=== PATIENT | male | born 1955 | race Caucasian/White ===

== ENCOUNTER 2023-12-23 09:59 | Emergency (ER) | payer BC ==
[~2023-12-23] VITALS: Ht 175.3 cm; Wt 82.0 kg
[~2023-12-23 09:59] MED LIST: ASPI-1497 PO; HYDR12.54 PO
[2023-12-23 10:00] VITALS: O2SAT 93
[2023-12-23 10:51] LABS: BASOPHILS % 1.3 % (0.0-2.0); EOSINOPHILS % 3.9 % (0.0-5.0); HEMATOCRIT. 41.9 % (42.0-52.0); HEMOGLOBIN. 13.9 g/dL (14.0-18.0); LYMPHOCYTES % 24.7 % (20.0-50.0); MEAN CORPUSCULAR HEMOGLOBIN 30.8 pg (28.0-32.0); MEAN CORPUSCULAR HGB CONC 33.2 g/dL (31.0-37.0); MEAN CORPUSCULAR VOLUME 92.8 fL (80.0-94.0); MEAN PLATELET VOLUME 8.4 fl (7.4-10.4); MONOCYTES % 8.4 % (2.0-8.0); NEUTROPHILS % 61.7 % (40.0-76.0); PLATELET 152 x1000/uL (130-400); RED BLOOD CELL COUNT 4.51 mill/uL (4.7-6.1); RED CELL DISTRIBUTION WIDTH 14.1 % (11.6-14.6)
[2023-12-23 10:57] LABS: PROTHROMBIN TIME 11.1 sec (9.6-11.0)
[2023-12-23 11:12] LABS: ALANINE AMINOTRANSFERASE 14 IU/L (10-49); ALBUMIN 4.4 g/dL (3.2-4.8); ASPARTATE AMINOTRANSFERASE 21 IU/L (<34); BILIRUBIN TOTAL 0.7 mg/dL (0.1-1.0); CALCIUM 8.8 mg/dL (8.7-10.4); CARBON DIOXIDE 28 mEq/L (21-32); CHLORIDE 105 mEq/L (98-107); GLUCOSE 166 mg/dL (70-105); POTASSIUM 4.4 mEq/L (3.5-5.1); PROTEIN TOTAL 6.6 g/dL (6.0-8.3); SODIUM 138 mEq/L (136-145); UREA NITROGEN BLOOD 21 mg/dL (9-23)
[2023-12-23 11:28] LABS: TROPONIN I HIGH SENSITIVITY 66 ng/L (3.0-53)
[2023-12-23 13:16] LABS: TROPONIN I HIGH SENSITIVITY 69 ng/L (3.0-53)
[2023-12-23 13:36] VITALS: BP 116/62; PULSE 61; RESP 18; TEMP 98.3
== END 2023-12-23 13:34 | disposition home or self-care (01) ==
LOC: ER 09:59
DX: R55 Syncope and collapse (principal); E78.00 Pure hypercholesterolemia, unspecified; I50.9 Heart failure, unspecified
CPT/HCPCS: 36415; 71045; 80053; 83880; 84484; 85025; 93005; 99285

== ENCOUNTER 2025-10-11 05:55 | Inpatient (IN) | payer BC, MEDICARE ==
[~2025-10-11] VITALS: Ht 170.2 cm; Wt 72.1 kg
[~2025-10-11 05:55] MED LIST changes: +AMLO5TAB88 MT; -ASPI-1497 PO; +BETH5TAB10 PO; +CLOP75TA33 PO; +DOCU-422 MT; +FINA5TAB11 PO; +GABA-1180 MT; +HYDR10TA34 MT; -HYDR12.54 PO; +SAW/1TAB2 MT; +SIMV10TA97 MT; +TERA10CA4 MT
[2025-10-11 05:56] VITALS: O2SAT 96
[2025-10-11] MEDS: ACETAMINOPHEN 325MG TABLET PO ONE (06:34)
[2025-10-11] MEDS: ONDANSETRON HCL 4MG/2ML INJ IV ONE (06:47)
[2025-10-11 07:14] LABS: BASOPHILS % 0.4 % (0.0-2.0); EOSINOPHILS % 3.5 % (0.0-5.0); HEMATOCRIT. 36.5 % (42.0-52.0); HEMOGLOBIN. 12.1 g/dL (14.0-18.0); LYMPHOCYTES % 8.2 % (20.0-50.0); MEAN PLATELET VOLUME 8.0 fl (7.4-10.4); MONOCYTES % 7.1 % (2.0-8.0); NEUTROPHILS % 80.8 % (40.0-76.0); PLATELET 179 x1000/uL (130-400); RED BLOOD CELL COUNT 4.15 mill/uL (4.7-6.1); RED CELL DISTRIBUTION WIDTH 14.2 % (11.6-14.6)
[2025-10-11] MEDS: MORPHINE SULFATE 4 MG/ML INJ (FOR IV/IM USE) IV ONE (07:22)
[2025-10-11 07:31] LABS: UREA NITROGEN BLOOD 25 mg/dL (9-23)
[2025-10-11 07:33] LABS: ASPARTATE AMINOTRANSFERASE 10 IU/L (<34); BILIRUBIN DIRECT 0.4 mg/dL (<=3.0); BILIRUBIN TOTAL 1.1 mg/dL (0.1-1.0); PROTEIN TOTAL 6.7 g/dL (6.0-8.3)
[2025-10-11 07:37] LABS: CREATININE 4.0 mg/dL (0.6-1.3)
[2025-10-11 09:40] VITALS: BP 120/61; PULSE 80; RESP 17; TEMP 36.4; O2SAT 95
[2025-10-11 10:00] VITALS: BP 120/61; PULSE 80; RESP 17; TEMP 36.418
[2025-10-11] MEDS ORDERED: ONDANSETRON HCL 4MG/2ML INJ IV PRN (11:30)
[2025-10-11] MEDS ORDERED: ACETAMINOPHEN 325MG TABLET PO PRN ×2 (11:30)
[2025-10-11] MEDS ORDERED: IPRATROPIUM/ALBUTEROL 0.5-3(2.5)MG/3ML NEB HHN PRN (11:30)
[2025-10-11] MEDS ORDERED: HYDRALAZINE 20MG/ML VIAL IV PRN (11:30)
[2025-10-11] MEDS ORDERED: DOCUSATE SODIUM 100MG CAPSULE PO PRN (11:30)
[2025-10-11] MEDS ORDERED: CLONIDINE 0.1MG TABLET PO PRN (11:30)
[2025-10-11] MEDS ORDERED: DEXTROSE 50% WATER 50ML SYRINGE IV PRN (11:30)
[2025-10-11] MEDS ORDERED: HYDRALAZINE 10 MG in SODIUM CHLORIDE 0.9% 49.5 ML IV PRN (11:45)
[2025-10-11] MEDS: INSULIN LISPRO 100 UNITS/ML SUBCUT SCH (13:00)
[2025-10-11] MEDS: TAMSULOSIN HCL 0.4MG SR CAPSULE PO SCH (13:21)
[2025-10-11] MEDS: PANTOPRAZOLE SODIUM 40 MG/VIAL IV SCH (13:21)
[2025-10-11] MEDS: DEXT 5%/0.9% NACL 1,000 ML IV SCH (13:22)
[2025-10-11] MEDS: BLOOD SUGAR DIAGNOSTIC STRIP TEST SCH (13:42)
[2025-10-11 13:56] LABS: CLARITY URINE TURBID (CLEAR); COLOR URINE ORANGE (YELLOW); GLUCOSE URINE NEGATIVE (NEGATIVE); KETONES URINE TRACE (NEGATIVE); LEUKOCYTE ESTERASE URINE 1+ (NEGATIVE); NITRITE URINE NEGATIVE (NEGATIVE); OCCULT BLOOD URINE 3+ (NEGATIVE); PH URINE 5.5 (4.5-8.0); PROTEIN URINE 2+ (NEGATIVE); SPECIFIC GRAVITY URINE 1.018 (1.005-1.030); UROBILINOGEN URINE 0.2 E.U./dL (0.2-1.0)
[2025-10-11 14:25] LABS: *AMPHETAMINES SCREEN URINE NEGATIVE (NEGATIVE); *BARBITURATES SCREEN URINE NEGATIVE (NEGATIVE); *BENZODIAZEPINES SCREEN URINE NEGATIVE (NEGATIVE); *COCAINE SCREEN URINE NEGATIVE (NEGATIVE); METHADONE URINE SCREEN NEGATIVE (NEGATIVE); OPIATES URINE SCREEN PRESUMPTIVE POSITIVE (NEGATIVE); PHENCYCLIDINE URINE SCREEN NEGATIVE (NEGATIVE)
[2025-10-11 14:26] LABS: CANNABINOID URINE SCREEN NEGATIVE (NEGATIVE); ECSTASY MDMA SCREEN URINE NEGATIVE (NEGATIVE)
[2025-10-11 16:12] LABS: BACTERIA URINE 1+; RBC URINE TNTC /hpf (0-2); SQUAMOUS EPITHELIAL CELL URINE 2+ /lpf (RARE/1+)
[2025-10-11] MEDS: PIPERACILLIN/TAZO 3.375G/50ML 50 ML IV SCH (18:11)
[2025-10-11 19:39] LABS: HEPATITIS C AB NON REACTIVE (Neg) (Negative)
[2025-10-11 20:00] VITALS: BP 116/60; PULSE 73; RESP 18; TEMP 36.5; O2SAT 95
[2025-10-11] MEDS: DILTIAZEM HCL 30MG TABLET PO SCH (21:08)
[2025-10-11] MEDS: ENOXAPARIN 80MG/0.8ML SYR SUBCUT SCH (21:29)
[2025-10-11 22:11] LABS: INR 1.2
[2025-10-12] VITALS: BP 119/63; PULSE 68; RESP 21; TEMP 36.5; O2SAT 97
[2025-10-12 04:00] VITALS: BP 119/74; PULSE 67; RESP 19; TEMP 36.4; O2SAT 98
[2025-10-12 07:40] LABS: BASOPHILS % 0.7 % (0.0-2.0); EOSINOPHILS % 4.8 % (0.0-5.0); HEMATOCRIT. 35.1 % (42.0-52.0); HEMOGLOBIN. 11.6 g/dL (14.0-18.0); INR 1.2; LYMPHOCYTES % 15.9 % (20.0-50.0); MEAN PLATELET VOLUME 8.1 fl (7.4-10.4); MONOCYTES % 8.6 % (2.0-8.0); NEUTROPHILS % 70.0 % (40.0-76.0); PLATELET 210 x1000/uL (130-400); RED BLOOD CELL COUNT 3.99 mill/uL (4.7-6.1); RED CELL DISTRIBUTION WIDTH 14.1 % (11.6-14.6)
[2025-10-12 08:00] VITALS: BP 123/62; PULSE 78; RESP 18; TEMP 36.5; O2SAT 96
[2025-10-12 08:01] LABS: FOLIC ACID (FOLATE) SERUM 13.98 ng/mL (>5.38)
[2025-10-12 08:02] LABS: CREATININE 1.1 mg/dL (0.6-1.3); UREA NITROGEN BLOOD 13 mg/dL (9-23)
[2025-10-12 08:04] LABS: ASPARTATE AMINOTRANSFERASE 8 IU/L (<34); BILIRUBIN DIRECT 0.4 mg/dL (<=3.0); BILIRUBIN TOTAL 0.9 mg/dL (0.1-1.0); PHOSPHORUS 2.6 mg/dL (2.5-4.9); PROTEIN TOTAL 5.7 g/dL (6.0-8.3)
[2025-10-12 08:20] LABS: VITAMIN B12 SERUM > 2000 pg/mL (211-911)
[2025-10-12] MEDS ORDERED: AMOX1TAB16 MT (11:07)
[2025-10-12 12:00] VITALS: BP 122/48; PULSE 74; RESP 18; TEMP 37; O2SAT 97
[2025-10-12 15:06] VITALS: BP 133/64; PULSE 78; RESP 18; TEMP 97.6
[2025-10-12 16:00] VITALS: BP 125/60; PULSE 75; RESP 18; TEMP 36.4; O2SAT 98
[2025-10-12] MEDS ORDERED: ENOXAPARIN 80MG/0.8ML SYR SUBCUT SCH (21:00)
[2025-10-13] MEDS ORDERED: FAMOTIDINE 20MG/2ML VIAL IV SCH (09:00)
== END 2025-10-12 19:15 | disposition home health service (06) | DRG 391 ==
LOC: ER 05:55 → 4WST 08:09
PROVIDERS: ADMIT Internal Medicine; ATTEND Internal Medicine
DX: K52.9 Noninfective gastroenteritis and colitis, unspecified (principal); N17.0 Acute kidney failure with tubular necrosis; R18.8 Other ascites; N13.6 Pyonephrosis; I48.92 Unspecified atrial flutter; E87.1 Hypo-osmolality and hyponatremia; D64.9 Anemia, unspecified; E11.22 Type 2 diabetes mellitus with diabetic chronic kidney disease; I12.9 Hypertensive chronic kidney disease with stage 1 through stage 4 chronic kidney disease, or unspecified chronic kidney disease; K80.20 Calculus of gallbladder without cholecystitis without obstruction; N18.1 Chronic kidney disease, stage 1; I48.91 Unspecified atrial fibrillation; E78.5 Hyperlipidemia, unspecified; N40.0 Benign prostatic hyperplasia without lower urinary tract symptoms; Z79.899 Other long term (current) drug therapy; Z95.0 Presence of cardiac pacemaker
CPT/HCPCS: 36415; 74176; 76700; 80048; 80076; 80305; 81003; 82607; 82728; 82746; 82962; 83036; 83540; 83550; 83605; 83735; 83930; 83935; 84100; 84145; 84443; 85025; 86705; 87340; 93005; 99291; J1650; J2270; J2405; J2470; J2543; J7042